=== PATIENT | male | born 1980 | race Caucasian/White ===

== ENCOUNTER 2016-07-31 14:52 | Emergency (ER) | payer SELFPAY ==
[2016-07-31] MEDS ORDERED: Ketorolac INJ* 30 MG/ML 1 ML VIAL IM ONE (16:39)
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
[2016-07-31 17:27] LABS: Urine Bacteria Absent (Absent); Urine Bilirubin Negative (Negative); Urine Glucose Negative (Negative); Urine Nitrite Negative (Negative)
[2016-07-31 18:22] VITALS: BP 157/104
== END 2016-07-31 18:21 | disposition home or self-care (01) ==
LOC: ED 14:52
DX: M54.9 Dorsalgia, unspecified (principal); R50.9 Fever, unspecified
CPT/HCPCS: 81003; 81015; 96372; 99282; J1885

== ENCOUNTER 2019-08-30 14:46 | Emergency (ER) | payer SELFPAY ==
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
[2019-08-30 16:36] VITALS: BP 174/115
== END 2019-08-30 16:32 | disposition home or self-care (01) ==
LOC: ED 14:46
DX: J32.9 Chronic sinusitis, unspecified (principal)
CPT/HCPCS: 99282